=== PATIENT | female | born 1975 | race African-American/Black ===

== ENCOUNTER 2016-11-24 20:06 | Emergency (ER) | payer OTHER ==
--- NOTE | ~2016-11-24 | CR229 ---
[facility] A Service of [facility] RADIOLOGY TEXT RESULTS PATIENT: JYOTI SPENCER LOCATION: CFTX : 79 UNIT #: [id number] AGE: [address]: RICKEY BOURNE APRN SEX: F ORDER DR: [id number] [place], [place] [address] [id number] E MR#: [id number] Acc #: [id number] NAME: JYOTI SPENCER : 1975 SEX: F STUDY DATE/TIME: 11/24/2016 22:02 UNIT: [facility] ROOM: STUDY DESCRIPTION: CR Shoulder Min 2 View Lt Attending Physician: Rickey Bourne Aprn Ordering Physician: Rickey Bourne Aprn Primary Care Physician: Primary Care Physician No MEDICAL IMAGING REPORT This report is preliminary unless electronic signature is present EXAM Left shoulder, 2 views INDICATIONS Left shoulder pain for a month, no known injury. No comparisons. FINDINGS No fracture or dislocation. There is some narrowing of the AC joint. IMPRESSION Narrowing of the AC joint, otherwise unremarkable. Dictated by... Akash Vera M.D. THIS IS AN ELECTRONICALLY VERIFIED REPORT Akash Vera M.D. at 11/26/2016 7:28 AM ITALO/maykel TD: 11/25/2016 03:24 JOB #: [id number] MEDICAL IMAGING REPORT Page 1 of 1 COPY
== END 2016-11-24 23:08 | disposition home or self-care (01) ==
LOC: CED 20:06 → CFTX 20:06
DX: M25.512 Pain in left shoulder (principal); S39.012A Strain of muscle, fascia and tendon of lower back, initial encounter; F17.210 Nicotine dependence, cigarettes, uncomplicated; X50.1XXA Overexertion from prolonged static or awkward postures, initial encounter
CPT/HCPCS: 73030; 99283